=== PATIENT | female | born 1985 | race Caucasian/White ===

== ENCOUNTER 2022-03-29 10:25 | Outpatient (CLI) | payer BC, OTHER ==
[~2022-03-29 10:25] MED LIST: Iopamidol 300 61% 100 ML VIAL FS ONE
== END 2022-03-29 10:26 | disposition home or self-care (01) ==
LOC: CSHCT 10:25
PROVIDERS: ATTEND Internal Medicine Hematology & Oncology
DX: D72.829 Elevated white blood cell count, unspecified (principal); K76.89 Other specified diseases of liver; K76.0 Fatty (change of) liver, not elsewhere classified
CPT/HCPCS: 74178; Q9967